=== PATIENT | male | born 1980 | race Caucasian/White ===

== ENCOUNTER 2020-02-20 04:20 | Emergency (ER) | payer SELFPAY ==
[2020-02-20 06:48] LABS: APPEARANCE,URINE SLIGHTLY-CLOUDY; BILIRUBIN,URINE NEGATIVE (NEGATIVE); GLUCOSE, URINE NEGATIVE (NEGATIVE); KETONES,URINE NEGATIVE (NEGATIVE); LEUKOCYTE ESTERASE,URINE NEGATIVE (NEGATIVE); NITRITE,URINE NEGATIVE (NEGATIVE); PROTEIN,URINE 30 mg/dL (NEGATIVE); URINE SPECIFIC GRAVITY 1.033
[2020-02-20 06:49] LABS: COLOR,URINE DARK YELLOW
[2020-02-20 06:53] LABS: HEMATOCRIT 44.3 % (37.9-51.0); HEMOGLOBIN 15.2 g/dL (13.5-17.0); MEAN CORPUSCULAR HEMOGLOBIN 29.1 pg (27.0-33.4); MEAN CORPUSCULAR HGB CONC 34.3 g/dL (32.0-36.0); MEAN CORPUSCULAR VOLUME 85 fl (80-97); PLATELET COUNT 223 10^3/uL (150-450); RED BLOOD COUNT 5.23 10^6/uL (4.35-5.55); RED CELL DISTRIBUTION WIDTH 13.9 % (11.5-14.0); WHITE BLOOD COUNT 22.6 10^3/uL (4.0-10.5)
[2020-02-20 07:07] LABS: ALBUMIN 4.7 g/dL (3.5-5.0); ALKALINE PHOSPHATASE 77 U/L (38-126); ANION GAP 12 (5-19); ASPARTATE AMINO TRANSFERASE 28 U/L (17-59); BILIRUBIN,DIRECT 0.2 mg/dL (0.0-0.4); BILIRUBIN,TOTAL 2.3 mg/dL (0.2-1.3); BLOOD UREA NITROGEN 14 mg/dL (7-20); CALCIUM 9.7 mg/dL (8.4-10.2); CARBON DIOXIDE 27 mmol/L (22-30); CHLORIDE 100 mmol/L (98-107); GLUCOSE 166 mg/dL (75-110); POTASSIUM 3.6 mmol/L (3.6-5.0); TOTAL PROTEIN 8.3 g/dL (6.3-8.2)
--- NOTE | 2020-02-20 07:26 | RADIOLOGY REPORT (SQ) ---
EXAM DESCRIPTION: XR ABDOMEN 1 VIEW (KUB) COMPLETED DATE/TME: 02/20/2020 06:35 CLINICAL HISTORY: 39 years Male, CONSTIPATION Comparison: None. NUMBER OF VIEWS/TECHNIQUE: 3 LIMITATIONS: None. FINDINGS: Intestinal gas pattern is within normal limits. No suspicious calcification. Lytic lesion with sclerotic margination at the lateral left femoral head may indicate subchondral degenerative cyst or chronic erosion. IMPRESSION: No acute findings.
[2020-02-20 07:48] LABS: ABSOLUTE LYMPHOCYTES# (MANUAL) 1.6 10^3/uL (0.5-4.7); ABSOLUTE MONOCYTES # (MANUAL) 2.7 10^3/uL (0.1-1.4); BASOPHILS % (MANUAL) 0 % (0-2); EOSINOPHILS % (MANUAL) 0 % (0-6); LYMPHOCYTES % (MANUAL) 6 % (13-45); MONOCYTES % (MANUAL) 12 % (3-13); SEGMENTED NEUTROPHILS % (MAN) 81 % (42-78); TOTAL CELLS COUNTED 100
[2020-02-20 07:49] LABS: PLATELET COMMENT ADEQUATE; RBC MORPHOLOGY COMMENT NORMO-CYTIC/CHROMIC
[2020-02-20] MEDS ORDERED: NORMAL SALINE 1000 ML 1,000 ML IV ONE (08:28)
--- NOTE | 2020-02-20 08:34 | ER Document Report ---
ED General - General Chief Complaint: Lower Abdominal Pain Stated Complaint: STOMACH PAIN Time Seen by Provider: 02/20/20 07:56 - HPI Notes: Chief complaint: Constipation and abdominal pain History of present illness: 39-year-old male with past history of polysubstance abuse taking Suboxone for several years and also with a history of untreated hepatitis C currently on no other prescription medications with reported history of penicillin allergy now presents with 5 days history of constipation asso ciated with progressively worsening right upper and lower quadrant abdominal pain. Denies fever chills. Has been nauseated and has vomited several times. His appetite has been diminished. He denies any past history abdominal surgery. He is a non-smoker. Consumes occasional alcohol socially. Currently unemployed. - Related Data Allergies/Adverse Reactions: Penicillins Allergy (Verified 02/20/20 04:36) Past Medical History - General Information source: Patient - Social History Smoking Status: Current Every Day Smoker Frequency of alcohol use: Occasional Drug Abuse: None Lives with: Alone Family History: Reviewed & Not Pertinent Endocrine Medical History: Denies: Hx Diabetes Mellitus Type 1, Hx Diabetes Mellitus Type 2 GI Medical History: Reports: Hx Hepatitis Surgical Hx: Negative Review of Systems - Review of Systems Notes: Constitutional: Negative for fever. HENT: Negative for sore throat. Eyes: Negative for visual changes. Cardiovascular: Negative for chest pain. Respiratory: Negative for shortness of breath. Gastrointestinal: As per HPI. Genitourinary: Negative for dysuria. Musculoskeletal: Negative for back pain. Skin: Negative for rash. Neurological: Negative for headaches, focal weakness or numbness. 10 point ROS negative except as marked above and in HPI. Physical Exam - Vital signs Vitals: Temp Pulse BP Pulse Ox 98.6 F 135 H 128/69 H 96 02/20/20 04:27 02/20/20 04:27 02/20/20 04:27 02/20/20 04:27 - Notes Notes: GENERAL: Well-developed well-nourished male approximately stated age appearing in no acute distress. SKIN: Good turgor no rashes. HEAD: Normocephalic atraumatic. EYES: PERRLA. EOMI. Conjunctivae and sclerae clear. EARS: CANALS AND TMS CLEAR. NOSE: CLEAR. MOUTH: Moist mucosa. Good dentition. No stridor or edema. No drooling. NECK: Supple. No masses or thyromegaly. No adenopathy. Carotids 2+ without bruits. No JVD. BACK: Symmetrical without tenderness. CHEST: Respirations unlabored. Breath sounds clear and symmetrical. HEART: Regular rhythm. No murmur gallop or rub. ABDOMEN: Abdomen appears mildly distended. There is mild tenderness right upper and right lower quadrant. Soft without masses, organomegaly or rebound. Bowel sounds normally active. No bruits. GENITALIA: Deferred. EXTREMITIES: No edema. No calf tenderness. Cap refill less than 1.5 seconds. Dorsalis pedis and posterior tibial pulses 3+ and symmetrical. NEUROLOGICAL: GCS 15. Alert and oriented x3. Normal gait. Fluent speech. Cranial nerves II through XII intact. Sensorimotor and cerebellar normal. Normal tone. PSYCHIATRIC: Appropriate affect. Course - Re-evaluation Re-evalutation: 02/20/20 12:44 Initial findings are suggestive of cholecystitis on CT and he has an elevated white count of 22,000. His bili is 2.3. His transaminases are normal. Findings have been discussed with the surgical list seasonal clerk, Dr. Darrin Jacinto who is indicated he would like to have an MRCP. This has been ordered. He will see the patient in the emergency department and I have initiated IV antibiotics. Patient remains n.p.o. 02/20/20 14:21 Patient was seen by a general surgeon who recommended cholecystectomy. Patient does not want to be admitted for this today and says he will come back to be seen in clinic and schedule this electively. human resource consultant discussed risks of delayed surgery but the patient is very much convinced that he does not want to stay today. Dr. Jacinto has recommended that we give the patient a dose of IV antibiotics and place him on oral antibiotics at home and he will see him back in clinic for follow-up. I have also discussed this with patient and his and this is their intent. Findings, clinical impression and plan of treatment have been discussed with patient/family. Understanding of current findings and recommendations has been acknowledged by them and there is agreement regarding disposition and follow-up. - Vital Signs Vital signs: Temp Pulse Resp BP Pulse Ox 98.3 F 78 18 133/78 H 97 02/20/20 08:49 02/20/20 08:49 02/20/20 08:49 02/20/20 08:49 02/20/20 08:49 - Laboratory Results Result Diagrams: 02/20/20 06:10 02/20/20 06:10 Laboratory Results Interpreted: 02/20/20 02/20/20 02/20/20 06:10 06:10 06:20 WBC 22.6 H Seg Neuts % (Manual) 81 H Lymphocytes % (Manual) 6 L Abs Neuts (Manual) 18.3 H Abs Monocytes (Manual) 2.7 H Glucose 166 H Total Bilirubin 2.3 H Total Protein 8.3 H Lipase 18.4 L Urine Protein 30 H Urine Urobilinogen 4.0 H Critical Laboratory Results Reviewed: Yes Attending or Supervising Physician who Reviewed Labs: TRACI OLIVARES - Radiology Results Radiology Results Interpreted: 02/20/20 12:43 KUB X-Ray 02/20/20 00:00 IMPRESSION: No acute findings. Abdomen/Pelvis CT 02/20/20 11:00 IMPRESSION: 1. Gallbladder disease as above. Concerning for acute cholecystitis. 2. Mild bowel changes may reflect enterocolitis. 3. Other findings as noted. Critical Radiology Results Reviewed: Yes Attending or Supervising Physician who Reviewed Radiology: TRACI OLIVARES Discharge - Discharge Clinical Impression: Cholecystitis Condition: Stable Disposition: HOME, SELF-CARE Additional Instructions: Gallbladder Disease Your evaluation shows evidence of gallbladder disease. The gallbladder is a pouch under the liver which stores bile. Stones, infection, or irritation of the gallbladder cause attacks of pain. Certain foods -- fats in particular -- may provoke attacks. The usual treatment for gallbladder disease is surgical removal of the gallbladder -- called a cholecystectomy. You will be referred to a physician qualified to advise you on the best treatment for your problem. Hospitalization is not necessary. Take clear liquids only until you are painfree. After that, you should stay on a low-fat diet, with frequent SMALL meals. Call the doctor or return at once if you develop severe pain, repeated vomiting, fever, or jaundice (a yellow color in the skin and whites of the eyes). Take prescribed medications as directed. Return here as needed for new or worsening symptoms: Pain that is worsening or unimproved Uncontrolled vomiting High fever or shaking chills Overall worsening Call surgery clinic to schedule follow-up with Dr. Jacinto this week. Prescriptions: Ciprofloxacin HCl [Cipro 500 mg Tablet] 500 mg PO BID #20 tablet Metronidazole [Flagyl 500 mg Tablet] 500 mg PO Q6H #40 tablet Referrals: DARRIN JACINTO MD [ACTIVE STAFF] - Follow up as needed
[2020-02-20 08:49] VITALS: BP 133/78
--- NOTE | 2020-02-20 11:36 | RADIOLOGY REPORT (SQ) ---
EXAM DESCRIPTION: CT ABD/PELVIS WITH IV ORAL IMAGES COMPLETED DATE/TIME: 02/20/2020 11:07 am REASON FOR STUDY: ruq pain COMPARISON: Radiographs from earlier. TECHNIQUE: CT scan of the abdomen and pelvis performed with intravenous and oral contrast using carmel shayne scanning technique with dynamic intravenous contrast injection. Images reviewed with lung, soft t issue, and bone windows. Reconstructed coronal and sagittal MPR images reviewed. Delayed images for e valuation of the urinary system also acquired. All images stored on PACS. All CT scanners at this facility use dose modulation, iterative reconstruction, and/or weight based d osing when appropriate to reduce radiation dose to as low as reasonably achievable (ALARA). [facility]: Dose Right [facility]: CareDose [facility]: Dose Right [facility]: Teradose 4D [facility]: Gratci CONTRAST TYPE AND DOSE: contrast/concentration: Isovue 350.00 mmol/ml; Total Contrast Delivered: 97. 0 ml; Total Saline Delivered: 64.1 ml RENAL FUNCTION: GFR > 60. RADIATION DOSE: CT Rad equipment meets quality standard of care and radiation dose reduction techniq ues were employed. CTDIvol: 7.8 - 7.8 mGy. DLP: 820 mGy-cm.. LIMITATIONS: None. FINDINGS: LOWER CHEST: No significant findings. No nodules or infiltrates. LIVER: Normal size. No masses. No dilated ducts. SPLEEN: Normal size. No focal lesions. PANCREAS: No masses. No significant calcifications. No adjacent inflammation or peripancreatic fluid collections. Pancreatic duct not dilated. GALLBLADDER: Abnormal. Distended with wall thickening and probable cholelithiasis. Oval nodule clos e to the gallbladder neck measures up to 1.6 cm. Unclear if this represents a node or stone. Region al pericholecystic inflammatory changes and edema. ADRENAL GLANDS: No significant masses or asymmetry. RIGHT KIDNEY AND URETER: No solid masses. No significant calcification. No hydronephrosis or hydroure ter. LEFT KIDNEY AND URETER: No solid masses. No significant calcification. No hydronephrosis or hydrouret er. AORTA AND VESSELS: No aneurysm. No dissection. Renal arteries, SMA, celiac without stenosis. RETROPERITONEUM: No retroperitoneal adenopathy, hemorrhage or masses. BOWEL AND PERITONEAL CAVITY: Mild fluid in the proximal half of the large bowel. No mechanical bowel obstruction. No free air. APPENDIX: Normal. PELVIS: Mild free fluid. Bladder unremarkable. ABDOMINAL WALL: No masses. No hernias. BONES: No fracture or worrisome bone lesion. Probable synovial herniation pit with surrounding scler osis in the left femoral head. OTHER: No other significant finding. IMPRESSION: 1. Gallbladder disease as above. Concerning for acute cholecystitis. 2. Mild bowel changes may reflect enterocolitis. 3. Other findings as noted. TECHNICAL DOCUMENTATION: JOB ID: [id number] Quality ID # [id number]: Final reports with documentation of one or more dose reduction techniques (e.g., Au tomated exposure control, adjustment of the mA and/or kV according to patient size, use of iterative reconstruction technique) 2010 [employer]- All Rights Reserved Reading location - IP/workstation name: [email or web address]
[2020-02-20] MEDS ORDERED: LORAZEPAM INJ 2 MG/1 ML VIAL IV ONE ×2 (12:49→12:50)
[2020-02-20] MEDS: METRONIDAZOLE 500 MG/NS RTU 500 MG/100 ML RTUPB IV ONE ×2 (12:55→13:19)
[2020-02-20] MEDS ORDERED: CIPROFLOXACIN 400 MG/D5W RTU 400 MG/200 ML RTUPB IV SCH (13:00)
--- NOTE | 2020-02-20 13:18 | PDOC CONSULTATION ---
Consultation Consult Date: 02/20/20 Attending physician:: TRACI OLIVARES Provider Consulted: CASEY JACINTO Consult reason:: cholecystitis History of Present Illness History of Present Illness: LES HUYNH is a 39 year old male 3 with past history of polysubstance abuse taking Suboxone for several years and also with a history of untreated hepatitis C currently on no other prescription medications with reported history of pe nicillin allergy now presents with 5 days history of constipation associated with progressively worsening right upper and lower quadrant abdominal pain. Denies fever chills. Has been nauseated and has vomited several times. His appetite has been diminished. He denies any past history abdominal surgery. He is a non-smoker. Consumes occasional alcohol socially. Currently unemployed. Past Medical History Endocrine Medical History: Denies: Diabetes Mellitus Type 1, Diabetes Mellitus Type 2 GI Medical History: Reports: Hepatitis Psychiatric Medical History: Reports: Alcohol Dependency, Substance Abuse Infectious Medical History: Reports: Hepatitis C Social History Lives with: Alone Smoking Status: Current Every Day Smoker Family History Family History: Reviewed & Not Pertinent Parental Family History Reviewed: No Children Family History Reviewed: NA Sibling(s) Family History Reviewed.: NA Medication/Allergy Allergies/Adverse Reactions: Penicillins Allergy (Verified 02/20/20 04:36) Review of Systems Eyes: ABSENT: as per HPI, visual disturbances, other Ears: ABSENT: as per HPI, hearing changes, other Nose, Mouth, and Throat: ABSENT: as per HPI, headache(s), mouth pain, sore throat, vertigo, other Breasts: ABSENT: as per HPI, other Cardiovascular: ABSENT: as per HPI, chest pain, dyspnea on exertion, edema, orthropnea, palpitations, other Respiratory: ABSENT: as per HPI, cough, dyspnea, hemoptysis, sputum, other Gastrointestinal: PRESENT: abdominal pain, bloating Genitourinary: ABSENT: as per HPI, difficulty urinating, dysuria, hematuria, nocturia, other Musculoskeletal: ABSENT: as per HPI, back pain, deformity, joint swelling, muscle weakness, other Integumentary: ABSENT: as per HPI, diaphoresis, erythema, lesions, pruritus, rash, wounds, other Neurological: ABSENT: as per HPI, abnormal gait, abnormal movements, abnormal speech, confusion, convulsions, dizziness, focal weakness, frequent falls, lack of coordination, memory loss, numbness, paresthesias, restless legs, syncope, tingling, tremor(s), vertigo, weakness, other Psychiatric: ABSENT: as per HPI, anxiety, depression, hallucinations, homidical ideation, suicidal ideation, other Endocrine: ABSENT: as per HPI, cold intolerance, flushing, heat intolerance, menstrual abnormalities, polydipsia, polyphagia, polyuria, other Hematologic/Lymphatic: ABSENT: as per HPI, easy bleeding, easy bruising, lym phadenopathy, other Allergic/Immunologic: ABSENT: as per HPI, seasonal rhinorrhea, other Physical Exam Vital Signs: Temp Pulse Resp BP Pulse Ox 98.3 F 78 18 133/78 H 97 02/20/20 08:49 02/20/20 08:49 02/20/20 08:49 02/20/20 08:49 02/20/20 08:49 Intake & Output 02/19/20 02/20/20 02/21/20 06:59 06:59 06:59 Intake Total 1000 Balance 1000 Weight 85.3 kg General appearance: PRESENT: no acute distress Head exam: PRESENT: normocephalic Eye exam: PRESENT: EOMI Ear exam: PRESENT: normal external ear exam Mouth exam: PRESENT: moist Teeth exam: PRESENT: poor dentation Neck exam: PRESENT: full ROM Respiratory exam: PRESENT: clear to auscultation ila Cardiovascular exam: PRESENT: RRR Pulses: PRESENT: normal radial pulses, normal femoral pulses Vascular exam: PRESENT: normal capillary refill Breast: PRESENT: Normal GI/Abdominal exam: PRESENT: Morales's sign - ruq tenderness, tenderness Rectal exam: PRESENT: deferred Extremities exam: PRESENT: full ROM Musculoskeletal exam: PRESENT: full ROM Neurological exam: PRESENT: alert, awake, oriented to person, oriented to place Psychiatric exam: PRESENT: appropriate affect Skin exam: PRESENT: dry Results Laboratory Results: 02/20/20 06:10 02/20/20 06:10 02/20/20 02/20/20 02/20/20 06:10 06:10 06:20 WBC 22.6 H RBC 5.23 Hgb 15.2 Hct 44.3 MCV 85 MCH 29.1 MCHC 34.3 RDW 13.9 Plt Count 223 Seg Neutrophils % Not Reportable Sodium 138.8 Potassium 3.6 Chloride 100 Carbon Dioxide 27 Anion Gap 12 BUN 14 Creatinine 0.88 Est GFR ( Amer) > 60 Glucose 166 H Calcium 9.7 Total Bilirubin 2.3 H AST 28 Alkaline Phosphatase 77 Total Protein 8.3 H Albumin 4.7 Lipase 18.4 L Urine Color DARK YELLOW Urine Appearance SLIGHTLY-CLOUDY Urine pH 5.0 Ur Specific [place] 1.033 Urine Protein 30 H Urine Glucose (UA) NEGATIVE Urine Ketones NEGATIVE Urine Blood NEGATIVE Urine Nitrite NEGATIVE Ur Leukocyte Esterase NEGATIVE Urine WBC (Auto) 2 Urine RBC (Auto) 1 Impressions: KUB X-Ray 02/20/20 00:00 IMPRESSION: No acute findings. Abdomen/Pelvis CT 02/20/20 11:00 IMPRESSION: 1. Gallbladder disease as above. Concerning for acute cholecystitis. 2. Mild bowel changes may reflect enterocolitis. 3. Other findings as noted. Assessment & Plan - Plan Summary Plan Summary: Patient with known hepatitis C. Elevated white blood count 22,000. CT scan shows a thickened gallbladder with peripheral edema around the gallbladder. Consistent with cholecystitis. Patient states that he normally runs a white blood count that is elevated because of his hepatitis C. However it is been untreated to this point. Clinical picture now is of acute cholecystitis. Recommended the patient that he undergo laparoscopic cholecystectomy versus open cholecystectomy I also informed him that his risk is slightly higher of bleeding because of his hepatitis C. However the patient does not want to be admitted to the hospital at this time and undergo surgery he wants to be discharged home on oral antibiotics and follow-up as an outpatient. He wants time to discuss it with his family and make other plans. I explained the patient that he does have an elevated white blood count and it is a sign of infection however he wants to defer at this point in start oral antibiotics as an outpatient. I explained to him that he can come back and see me in the office and I can schedule his surgery electively however I strongly urged him to undergo surgery at this time, he wants to defer.
[2020-02-20] MEDS ORDERED: OXYCODONE-ACETAMINOPHEN 5-325 MG TABLET PO ONE (13:53)
== END 2020-02-20 15:05 | disposition home or self-care (01) ==
LOC: ER 04:20
DX: K81.9 Cholecystitis, unspecified (principal); R10.30 Lower abdominal pain, unspecified; R11.2 Nausea with vomiting, unspecified; K59.00 Constipation, unspecified; F17.200 Nicotine dependence, unspecified, uncomplicated
CPT/HCPCS: 99285; 96361; 96365; 96368; 36415; 87040; 83690; 85025; 80053; 81001; 74018; 74177; J3490; J7030; J0744

== ENCOUNTER 2020-03-04 15:11 | Observation (INO) | payer SELFPAY ==
[2020-03-04] MEDS ORDERED: ONDANSETRON HCL INJ/PF 4 MG/2 ML SDV IV ONE ×2 (16:20→18:32)
[2020-03-04] MEDS ORDERED: KETOROLAC TROMETHAMINE INJ/PF 30 MG/1 ML SDV IV ONE (16:20)
--- NOTE | 2020-03-04 16:22 | ER Document Report ---
ED Medical Screen (RME) - General Chief Complaint: Abdominal Pain Stated Complaint: ABDOMINAL PAIN Time Seen by Provider: 03/04/20 16:14 Mode of Arrival: Ambulatory - [facility] Patient complains to provider of: Abdo pain Notes: 03/04/20 16:21 Patient here with complaints of right upper quadrant abdominal pain. The patient was seen here earlier in the month with abdominal pain. He was noted to have a white count of [address] that was consistent with acute cholecystitis. He was seen and evaluated by general surgery, but deferred to have surgery done at that time. He attempted to follow-up as an outpatient, but states that it was costing too much money was unable to afford being seen in having the surgery electively. States that his pain flared back up. He has nausea, but denies vomiting or diarrhea. No fever. Patient is on Suboxone and has a prior history of hepatitis C. Exam: Nontoxic, no distress. Tenderness palpation right upper quadrant with guarding. Lungs clear throughout. Heart sounds normal. An initial examination was made on the patient as part of the triage process, and it was determined a more comprehensive evaluation was necessary. Initial ord ers were placed and patient was transferred to another provider in the ED who assumed care and finished evaluation and plan. - Related Data Allergies/Adverse Reactions: Penicillins Allergy (Verified 03/04/20 16:12) Home Medications: subutex Past Medical History - Social History Chew tobacco use (# tins/day): No Frequency of alcohol use: None Drug Abuse: None Endocrine Medical History: Denies: Hx Diabetes Mellitus Type 1, Hx Diabetes Mellitus Type 2 GI Medical History: Reports: Hx Hepatitis Infectious Medical History: Reports: Hx Hepatitis Physical Exam - Vital signs Vitals: Temp Pulse Resp BP Pulse Ox 97.8 F 95 20 131/84 H 100 03/04/20 15:15 03/04/20 15:15 03/04/20 15:15 03/04/20 15:15 03/04/20 15:15 Course - Vital Signs Vital signs: Temp Pulse Resp BP Pulse Ox 97.8 F 95 20 131/84 H 100 03/04/20 15:15 03/04/20 15:15 03/04/20 15:15 03/04/20 15:15 03/04/20 15:15
[2020-03-04 18:13] LABS: APPEARANCE,URINE CLEAR; BILIRUBIN,URINE NEGATIVE (NEGATIVE); COLOR,URINE YELLOW; GLUCOSE, URINE NEGATIVE (NEGATIVE); KETONES,URINE NEGATIVE (NEGATIVE); LEUKOCYTE ESTERASE,URINE NEGATIVE (NEGATIVE); NITRITE,URINE NEGATIVE (NEGATIVE); PROTEIN,URINE NEGATIVE (NEGATIVE); URINE SPECIFIC GRAVITY 1.016; UROBILINOGEN,URINE NEGATIVE mg/dL (<2.0)
[2020-03-04 18:18] LABS: ABSOLUTE EOSINOPHILS # (AUTO) 0.2 10^3/uL (0.0-0.6); ABSOLUTE LYMPHOCYTES (AUTO) 2.1 10^3/uL (0.5-4.7); ABSOLUTE MONOCYTES (AUTO) 0.5 10^3/uL (0.1-1.4); ABSOLUTE NEUT (AUTO) 6.2 10^3/uL (1.7-8.2); BASOPHILS % (AUTO) 0.4 % (0-2); EOSINOPHILS % (AUTO) 2.1 % (0-6); HEMATOCRIT 47.9 % (37.9-51.0); HEMOGLOBIN 16.5 g/dL (13.5-17.0); LYMPHOCYTES % (AUTO) 23.4 % (13-45); MEAN CORPUSCULAR HEMOGLOBIN 29.3 pg (27.0-33.4); MEAN CORPUSCULAR HGB CONC 34.3 g/dL (32.0-36.0); MEAN CORPUSCULAR VOLUME 85 fl (80-97); MONOCYTES % (AUTO) 5.2 % (3-13); PLATELET COUNT 272 10^3/uL (150-450); RED BLOOD COUNT 5.62 10^6/uL (4.35-5.55); RED CELL DISTRIBUTION WIDTH 14.1 % (11.5-14.0); SEGMENTED NEUTROPHILS % (AUTO) 68.9 % (42-78); TOTAL CELLS COUNTED % (AUTO) 100 %
[2020-03-04 18:26] LABS: ALBUMIN 4.9 g/dL (3.5-5.0); ALKALINE PHOSPHATASE 100 U/L (38-126); ANION GAP 10 (5-19); ASPARTATE AMINO TRANSFERASE 73 U/L (17-59); BILIRUBIN,DIRECT 0.4 mg/dL (0.0-0.4); BILIRUBIN,TOTAL 0.5 mg/dL (0.2-1.3); BLOOD UREA NITROGEN 11 mg/dL (7-20); CALCIUM 10.5 mg/dL (8.4-10.2); CARBON DIOXIDE 30 mmol/L (22-30); CHLORIDE 101 mmol/L (98-107); GLUCOSE 89 mg/dL (75-110); POTASSIUM 4.3 mmol/L (3.6-5.0); TOTAL PROTEIN 8.2 g/dL (6.3-8.2)
[2020-03-04] MEDS ORDERED: MORPHINE SULFATE 10 MG/ML INJ IV ONE (18:32)
--- NOTE | 2020-03-04 18:36 | ER Document Report ---
ED General - General Chief Complaint: Abdominal Pain Stated Complaint: ABDOMINAL PAIN Time Seen by Provider: 03/04/20 16:14 Mode of Arrival: Ambulatory - HPI Notes: Patient is a 39-year-old male who presents emergency department for evaluation of right upper quadrant pain. He was seen here recently, elected not to have surgery secondary to acute cholecystitis. He was told he had multiple stones. He states he has been doing "his best" to follow dietary restrictions, but he has continued pain. He has lost weight. He has had some chills but no breanne fevers. Nausea but no vomiting. His pain is currently a 5 out of 5, eating makes it worse, nothing seems to make it better. Normal bowel movements. Normal urinary symptoms. - Related Data Allergies/Adverse Reactions: Penicillins Allergy (Verified 03/04/20 16:12) Home Medications: subutex Past Medical History - General Information source: Patient - Social History Smoking Status: Never Smoker Chew tobacco use (# tins/day): No Frequency of alcohol use: None Drug Abuse: None Lives with: Alone Family History: Reviewed & Not Pertinent Endocrine Medical History: Denies: Hx Diabetes Mellitus Type 1, Hx Diabetes Mellitus Type 2 GI Medical History: Reports: Hx Hepatitis - C Infectious Medical History: Reports: Hx Hepatitis Review of Systems - Review of Systems Constitutional: See HPI EENT: No symptoms reported Cardiovascular: No symptoms reported Respiratory: No symptoms reported Gastrointestinal: See HPI Genitourinary: No symptoms reported Musculoskeletal: No symptoms reported Skin: No symptoms reported Neurological/Psychological: No symptoms reported Physical Exam - Vital signs Vitals: Temp Pulse Resp BP Pulse Ox 97.8 F 95 20 131/84 H 100 03/04/20 15:15 03/04/20 15:15 03/04/20 15:15 03/04/20 15:15 03/04/20 15:15 - Notes Notes: Vital signs reviewed, please refer to chart. Head is normocephalic, atraumatic. Pupils equal round, reactive to light. Neck is supple without meningismus. Heart is regular rate and rhythm. Lungs are clear to auscultation bilaterally. Abdomen is soft, moderately tender in the right upper quadrant without rebound, positive guarding, normoactive bowel sounds throughout. Extremities without cyanosis, clubbing. Posterior calves are nontender. Peripheral pulses are equal. Skin is warm and dry. Patient is awake, alert, neurological exam is nonfocal. Course - Re-evaluation Re-evalutation: 03/04/20 18:35 Patient presents emergency department for evaluation. He has a known history of cholecystitis and cholelithiasis. He has had no fevers. Blood work is ordered. He does not have any markedly elevated liver and signs, his white count is normal. Awaiting ultrasound results. Patient is given pain and nausea medication. We will continue to monitor. 03/04/20 19:10 Ultrasound shows gallbladder sludge, wall thickening, findings consistent with a cute cholecystitis. I spoke with Dr. Her. He asks that a rapid Covid order replaced. He is in the OR at this time. 03/04/20 20:[address] Her regarding this patient. He will come down and it was coming down to see the patient. I am notified by nursing that the patient will be admitted to his service for cholecystectomy in the morning. - Vital Signs Vital signs: Temp Pulse Resp BP Pulse Ox 97.8 F 95 20 131/84 H 100 03/04/20 15:15 03/04/20 15:15 03/04/20 15:15 03/04/20 15:15 03/04/20 15:15 - Laboratory Results Result Diagrams: 03/04/20 17:30 03/04/20 17:30 Laboratory Results Interpreted: 03/04/20 03/04/20 17:30 17:30 RBC 5.62 H RDW 14.1 H Calcium 10.5 H AST 73 H ALT 66 H Critical Laboratory Results Reviewed: No Critical Results - Radiology Results Radiology Results Interpreted: 03/04/20 19:11 Abdomen Ultrasound 03/04/20 16:19 IMPRESSION: Findings suspicious for acute cholecystitis. Critical Radiology Results Reviewed: No Critical Results Discharge - Discharge Clinical Impression: Cholecystitis with cholelithiasis Condition: Stable Disposition: ADMITTED OBSERVATION Admitting Provider: Surgicalist Mary Her
[2020-03-04] MEDS ORDERED: NORMAL SALINE 1000 ML 1,000 ML IV ONE (18:47)
--- NOTE | 2020-03-04 18:52 | RADIOLOGY REPORT (SQ) ---
EXAM DESCRIPTION: U/S ABDOMEN LIMITED W/O DOP IMAGES COMPLETED DATE/TIME: 03/04/2020 3:38 pm REASON FOR STUDY: RUQ pain, prior cholecystitis, no surg COMPARISON: CT abdomen pelvis 02/20/2020 TECHNIQUE: Dynamic and static grayscale images acquired of the abdomen and recorded on PACS. Additio nal selected color Doppler and spectral images recorded. LIMITATIONS: Pancreas and portions of the abdominal aorta are obscured. FINDINGS: PANCREAS: Partially obscured due to overlying bowel. Visualized portions are unremarkable . LIVER: No masses. Echotexture normal. LIVER VASCULATURE: Normal directional flow of the main portal vein and hepatic veins. GALLBLADDER: Shadowing gallstones with gallbladder wall thickening measuring up to 5 to 6 mm. Probab le gallbladder sludge. ULTRASOUND-DETECTED WAGNER'S SIGN: Positive. INTRAHEPATIC DUCTS AND COMMON DUCT: CBD and intrahepatic ducts normal caliber. No filling defects. INFERIOR VENA CAVA: Not visualized AORTA: Visualized portions are nonaneurysmal. RIGHT KIDNEY: Normal size. Normal echogenicity. No solid or suspicious masses. No hydronephrosis. No calcifications. PERITONEAL AND RIGHT PLEURAL SPACE: No ascites or effusions. OTHER: No other significant findings. IMPRESSION: Findings suspicious for acute cholecystitis. TECHNICAL DOCUMENTATION: JOB ID: [id number] [employer]- All Rights Reserved Reading location - IP/workstation name: [email or web address]
--- NOTE | 2020-03-04 20:02 | PDOC H&P ---
History of Present Illness Patient complains of: Abdominal pain History of Present Illness: LES HUYNH is a 39 year old male With a history of polysubstance abuse, on Suboxone, previously [facility] February 19 diagnosed with acute cholecystitis with cholelithiasis, with leukocytosis, offered interval cholecystectomy but left AMA on p.o. antibiotics. Now presents back to the emergency department with persisting abdominal pain, weight loss, low-grade fever, anorexia. Ultrasonography shows gallstones in the gallbladder with thickened gallbladder wall. Patient is evaluated by surgery, recommended admission to the surgical service for definitive management. Patient states he is off drugs at this time. Past Medical History Past Medical History: COPD, smoking abuse, polysubstance abuse, hepatitis C Endocrine Medical History: Denies: Diabetes Mellitus Type 1, Diabetes Mellitus Type 2 GI Medical History: Reports: Hepatitis Past Surgical History Past Surgical History: Reports: None Social History Information Source: Patient Lives with: Alone Smoking Status: Current Every Day Smoker Electronic Cigarette use?: No Hx Recreational Drug Use: Yes Family History Family History: None, Reviewed & Not Pertinent Parental Family History Reviewed: No Children Family History Reviewed: No Sibling(s) Family History Reviewed.: No Medication/Allergy Home Medications: Ciprofloxacin HCl [Cipro 500 mg Tablet] 500 mg PO BID #20 tablet 02/20/20 Metronidazole [Flagyl 500 mg Tablet] 500 mg PO Q6H #40 tablet 02/20/20 Allergies/Adverse Reactions: Penicillins Allergy (Verified 03/04/20 16:12) Review of Systems Constitutional: PRESENT: weight loss Eyes: ABSENT: visual disturbances Ears: ABSENT: hearing changes Gastrointestinal: PRESENT: abdominal pain, bloating Genitourinary: ABSENT: dysuria, hematuria Musculoskeletal: ABSENT: joint swelling Integumentary: ABSENT: rash, wounds Neurological: ABSENT: abnormal gait, abnormal speech, confusion, dizziness, focal weakness, syncope Hematologic/Lymphatic: ABSENT: easy bleeding, easy bruising Physical Exam Vital Signs: Temp Pulse Resp BP Pulse Ox 97.8 F 95 20 131/84 H 100 03/04/20 15:15 03/04/20 15:15 03/04/20 15:15 03/04/20 15:15 03/04/20 15:15 Intake & Output 03/03/20 03/04/20 03/05/20 06:59 06:59 06:59 Weight 87.1 kg General appearance: PRESENT: no acute distress Head exam: PRESENT: normocephalic Eye exam: PRESENT: EOMI Mouth exam: PRESENT: dry mucosa Neck exam: PRESENT: full ROM Respiratory exam: PRESENT: rhonchi Cardiovascular exam: PRESENT: RRR Pulses: PRESENT: normal carotid pulses, normal radial pulses, normal femoral pulses GI/Abdominal exam: PRESENT: other - Tender right upper quadrant with guarding. No umbilical hernia. No groin hernia Rectal exam: PRESENT: deferred Extremities exam: PRESENT: full ROM Musculoskeletal exam: PRESENT: full ROM Neurological exam: PRESENT: oriented to time, oriented to situation Psychiatric exam: PRESENT: appropriate affect Focused psych exam: PRESENT: other - Anxious Skin exam: PRESENT: intact, other - Extensive tattoos Results Laboratory Results: 03/04/20 17:30 03/04/20 17:30 03/04/20 03/04/20 03/04/20 17:30 17:30 17:30 WBC 9.0 RBC 5.62 H Hgb 16.5 Hct 47.9 MCV 85 MCH 29.3 MCHC 34.3 RDW 14.1 H Plt Count 272 Seg Neutrophils % 68.9 Sodium 141.4 Potassium 4.3 Chloride 101 Carbon Dioxide 30 Anion Gap 10 BUN 11 Creatinine 0.80 Est GFR ( Amer) > 60 Glucose 89 Calcium 10.5 H Total Bilirubin 0.5 AST 73 H Alkaline Phosphatase 100 Total Protein 8.2 Albumin 4.9 Lipase 73.7 Urine Color YELLOW Urine Appearance CLEAR Urine pH 6.0 Ur Specific [place] 1.016 Urine Protein NEGATIVE Urine Glucose (UA) NEGATIVE Urine Ketones NEGATIVE Urine Blood NEGATIVE Urine Nitrite NEGATIVE Ur Leukocyte Esterase NEGATIVE Urine WBC (Auto) 0 Impressions: Abdomen Ultrasound 03/04/20 16:19 IMPRESSION: Findings suspicious for acute cholecystitis. Assessment & Plan - Diagnosis (1) Cholecystitis Is this a current diagnosis for this admission?: Yes Plan: Impression: Persisting, acute cholecystitis with cholelithiasis and 39-year-old white male, smoker, history of hepatitis C-untreated, history of polysubstance abuse Plan: 1. Admit, n.p.o., IV fluids, IV antibiotics, rapid Covid test 2. We will set patient up for interval laparoscopic, possible open cholecystectomy, 1 hour, [facility], possible drain, March 05 (2) Cholelithiasis Is this a current diagnosis for this admission?: Yes (3) Hepatitis-C Is this a current diagnosis for this admission?: Yes (4) Abuse of smoked substance Is this a current diagnosis for this admission?: Yes - Time Time Spent: 30 to 50 Minutes Critical Time spent with patient: 15-24 minutes Smoking Cessation Education: 3 to 10 minutes Medications reviewed and adjusted accordingly: Yes Anticipated Discharge Disposition: Home, Self Care Anticipated Discharge Timeframe: within 48 hours - Inpatient Certification Based on my medical assessment, after consideration of the patient's comorbidities, presenting symptoms, or acuity I expect that the services needed warrant INPATIENT care.: Yes I certify that my determination is in accordance with my understanding of Medicare's requirements for reasonable and necessary INPATIENT services [42 CFR 412.3e].: Yes Medical Necessity: Need for Pain Control, Need for IV Antibiotics, Need for Surgery
[2020-03-04] MEDS: RINGERS SOLUTION,LACTATED 1,000 ML IV PRN (22:34)
[2020-03-05] MEDS ORDERED: ACETAMINOPHEN INJ/PF 1000 MG/100 ML SDV IV SCH
[2020-03-05] MEDS: KETOROLAC TROMETHAMINE INJ/PF 30 MG/1 ML SDV IV PRN ×2 (00:08→08:07)
[2020-03-05] MEDS: CLINDAMYCIN 600 MG/D5W RTU 600 MG/50 ML RTUPB IV SCH ×3 (00:08→14:28)
[2020-03-05] MEDS: ACETAMINOPHEN 1,000 MG/100 ML RTUPB IV SCH ×3 (02:42→14:28)
[2020-03-05] MEDS: RINGERS SOLUTION,LACTATED 1,000 ML IV PRN (06:17)
[2020-03-05] MEDS ORDERED: LIDOCAINE 2% INJ-PF (20 MG/ML) 10 ML AMPUL ONE (08:44)
[2020-03-05] MEDS ORDERED: DEXAMETHASONE SOD PHOSPHATE INJ 4 MG/1 ML VIAL ONE (08:44)
[2020-03-05] MEDS ORDERED: FENTANYL CITRATE INJ/PF 100 MCG/2 ML AMPUL ONE (08:44)
[2020-03-05] MEDS ORDERED: ONDANSETRON HCL INJ/PF 4 MG/2 ML SDV ONE (08:44)
[2020-03-05] MEDS ORDERED: MIDAZOLAM 2 MG/2 ML INJ ONE (08:44)
[2020-03-05] MEDS ORDERED: HYDROMORPHONE HCL INJ/PF 2 MG/ML AMPULE ONE (08:45)
[2020-03-05] MEDS ORDERED: PROPOFOL INJ 200 MG/20 ML VIAL IV ONE (08:45)
[2020-03-05] MEDS ORDERED: BUPIVACAINE HCL 0.25 % INJ/PF (2.5 MG/1 ML) 30 ML VIAL ONE (09:16)
[2020-03-05] MEDS ORDERED: GLYCOPYRROLATE 1 MG/5 ML VIAL ONE (09:39)
[2020-03-05] MEDS ORDERED: KETOROLAC TROMETHAMINE 60 MG/2 ML SDV ONE (09:39)
[2020-03-05] MEDS ORDERED: NEOSTIGMINE METHYLSULFATE 10 MG/10 ML VIAL ONE (09:39)
[2020-03-05] MEDS ORDERED: CEFAZOLIN INJ 1 GM VIAL ONE (10:27)
[2020-03-05] MEDS ORDERED: MORPHINE SULFATE 10 MG/ML INJ IV PRN (10:55)
[2020-03-05] MEDS ORDERED: DIPHENHYDRAMINE HCL 50 MG/ML VIAL IV PRN (10:55)
[2020-03-05] MEDS ORDERED: PROMETHAZINE HCL INJ 25 MG/1 ML VIAL IV PRN ×2 (10:55)
[2020-03-05] MEDS ORDERED: FENTANYL CITRATE INJ/PF 100 MCG/2 ML AMPUL IV PRN ×3 (10:55)
[2020-03-05] MEDS ORDERED: OXYCODONE-ACETAMINOPHEN 5-325 MG TABLET PO PRN ×2 (10:55)
--- NOTE | 2020-03-05 11:54 | Operative Report ---
Operative Report DATE OF SURGERY: 03/05/20 PREOPERATIVE DIAGNOSIS: Acute and chronic cholecystitis with cholelithiasis POSTOPERATIVE DIAGNOSIS: Same OPERATION: Laparoscopic cholecystectomy SURGEON: HEATHER LIRA ANESTHESIA: GA TISSUE REMOVED OR ALTERED: 1 gallbladder with contents COMPLICATIONS: None ESTIMATED BLOOD LOSS: Minimal INTRAOPERATIVE FINDINGS: See below PROCEDURE: Patient was taken to the preop holding area to the main operating room where general anesthesia was induced. Arms were abducted, abdomen exposed, prepped and draped in sterile fashion. Surgical plan and surgical timeout were conducted. Markings were made on the skin for for port laparoscopy. All 3 sites were anesthetized with quarter percent Marcaine. A vertical incision was made over the umbilicus, Veress needle inserted the peritoneal cavity, pneumoperitoneum was established. Needle was removed, 5 mm port was inserted and a 5 mm flexible viewing scope was inserted. Under direct visualization 3 additional ports were placed one in the subxiphoid and 2 in the subcostal positions. There was no evidence of vascular or visceral injury. Findings were significant for an acute and chronically inflamed gallbladder with edema, and thickened gallbladder wall with pericholecystic fluid. Grasper was p laced on the fundus, and adhesions between the gallbladder and the gastroduodenal area were taken down under direct visualization. A second grasper was eventually placed on the infundibulum which was somewhat pedunculated. The peritoneal reflection on the medial and lateral sides of the triangle of Calot was opened up. The cystic artery and cystic duct ran parallel to each other. Multiple photos were taken now of these 2 structures once they were dissected out cleanly. The critical view was felt to be obtained from both the medial and lateral perspectives. Again photos taken. We clipped the cystic duct twice proximally once distally and divided with scissors. The the cystic duct was now clipped twice proximally, once distally then divided with scissors. The gallbladder was elevated off of the liver bed, and removed in its entirety using hook electrocautery dissection. There was a moderate amount of edema. The gallbladder was placed in Endobag and brought out of the patient through the supraumbilical port site after stretching the fascial opening. We returned to the peritoneal cavity check for bleeding there was none. Sponge and counts are correct. Clips on the cystic artery and cystic duct stumps respectively were in good position. We leveled the patient out irrigated, checked for bleeding and there was none. All ports removed under direct visualization, pneumoperitoneum evacuated, and wounds closed with 0 Vicryl, 3-0 Vicryl, benzoin and Steri-Strips. Patient tolerated the procedure well, extubated, and taken to recovery room in stable condition.
[2020-03-05] MEDS: MORPHINE SULFATE 10 MG/ML INJ ONE ×2 (12:20→12:25)
[2020-03-05 13:04] VITALS: BP 122/72
--- NOTE | 2020-03-05 14:19 | PDOC DISCHARGE SUMMARY ---
General - Admit/Disc Date/PCP Admission Date/Primary Care Provider: 03/04/20 20:10 Discharge Date: 03/05/20 - Discharge Diagnosis Final Diagnosis: Acute cholecystitis with cholelithiasis - Assessment Summary: Patient is a 39-year-old white male with history of smoking, polysubstance abuse, who was admitted to the hospital after being seen initially 2-1/2 weeks prior for abdominal pain cholelithiasis, cholecystitis. Patient declined admission to the hospital and was sent home on p.o. antibiotics. He was readmitted to [facility] by Dr. Her last night for acute cholecystitis cholelithiasis. Covid test negative. He was taken to the operating room on 03/05/2020 where he underwent laparoscopic cholecystectomy. He tolerated the operation well and was discharged home approximately 6 hours after the procedure. He was tolerating a diet and had adequate pain control. Patient will call [place] [facility] on March 06, for an appointment to neeru Her in approximately 2 weeks. No heavy lifting. Patient will take Motrin, Tylenol, or Toradol as prescribed. - Additional Information Resuscitation Status: Full Code Home Medications: Ciprofloxacin HCl [Cipro 500 mg Tablet] 500 mg PO BID #20 tablet 02/20/20 Metronidazole [Flagyl 500 mg Tablet] 500 mg PO Q6H #40 tablet 02/20/20 History of Present Illiness History of Present Illness: LES HUYNH is a 39 year old male With a history of polysubstance abuse, on Suboxone, previously seen at [facility] February 19 diagnosed with acute cholecystitis with cholelithiasis, with leukocytosis, offered interval cholecystectomy but left AMA on p.o. antibiotics. Now presents back to the emergency department with persisting abdominal pain, weight loss, low-grade fever, anorexia. Ultrasonography shows gallstones in the gallbladder with thickened gallbladder wall. Patient is evaluated by surgery, recommended admission to the surgical service for definitive management. Patient states he is off drugs at this time. Physical Exam Vital Signs: Temp Pulse Resp BP Pulse Ox 97.6 F 66 18 122/72 100 03/05/20 12:38 03/05/20 12:38 03/05/20 12:38 03/05/20 12:38 03/05/20 12:38 Intake & Output 03/04/20 03/05/2021 06:59 06:59 06:59 Intake Total 2049 1250 Output Total 10 Balance 2049 1240 Weight 85.1 kg Results Laboratory Results: WBC 9.0 10^3/uL (4.0-10.5) 03/04/20 17:30 RBC 5.62 10^6/uL (4.35-5.55) H 03/04/20 17:30 Hgb 16.5 g/dL (13.5-17.0) 03/04/20 17:30 Hct 47.9 % (37.9-51.0) 03/04/20 17:30 MCV 85 fl (80-97) 03/04/20 17:30 MCH 29.3 pg (27.0-33.4) 03/04/20 17:30 MCHC 34.3 g/dL (32.0-36.0) 03/04/20 17:30 RDW 14.1 % (11.5-14.0) H 03/04/20 17:30 Plt Count 272 10^3/uL (150-450) 03/04/20 17:30 Lymph % (Auto) 23.4 % (13-45) 03/04/20 17:30 [place] % (Auto) 5.2 % (3-13) 03/04/20 17:30 Eos % (Auto) 2.1 % (0-6) 03/04/20 17:30 Baso % (Auto) 0.4 % (0-2) 03/04/20 17:30 Absolute Neuts (auto) 6.2 10^3/uL (1.7-8.2) 03/04/20 17:30 Absolute Lymphs (auto) 2.1 10^3/uL (0.5-4.7) 03/04/20 17:30 Absolute Monos (auto) 0.5 10^3/uL (0.1-1.4) 03/04/20 17:30 Absolute Eos (auto) 0.2 10^3/uL (0.0-0.6) 03/04/20 17:30 Absolute Basos (auto) 0.0 10^3/uL (0.0-0.2) 03/04/20 17:30 Seg Neutrophils % 68.9 % (42-78) 03/04/20 17:30 Sodium 141.4 mmol/L (137-145) 03/04/20 17:30 Potassium 4.3 mmol/L (3.6-5.0) 03/04/20 17:30 Chloride 101 mmol/L (98-107) 03/04/20 17:30 Carbon Dioxide 30 mmol/L (22-30) 03/04/20 17:30 Anion Gap 10 (5-19) 03/04/20 17:30 BUN 11 mg/dL (7-20) 03/04/20 17:30 Creatinine 0.80 mg/dL (0.52-1.25) 03/04/20 17:30 Est GFR ( Amer) > 60 (>60) 03/04/20 17:30 Est GFR (MDRD) Non-Af > 60 (>60) 03/04/20 17:30 Glucose 89 mg/dL (75-110) 03/04/20 17:30 Calcium 10.5 mg/dL (8.4-10.2) H 03/04/20 17:30 Total Bilirubin 0.5 mg/dL (0.2-1.3) 03/04/20 17:30 Direct Bilirubin 0.4 mg/dL (0.0-0.4) 03/04/20 17:30 Neonat Total Bilirubin Not Reportable 03/04/20 17:30 Neonat Direct Bilirubin Not Reportable 03/04/20 17:30 Neonat Indirect Bili Not Reportable 03/04/20 17:30 AST 73 U/L (17-59) H 03/04/20 17:30 ALT 66 U/L (<50) H 03/04/20 17:30 Alkaline Phosphatase 100 U/L (38-126) 03/04/20 17:30 Total Protein 8.2 g/dL (6.3-8.2) 03/04/20 17:30 Albumin 4.9 g/dL (3.5-5.0) 03/04/20 17:30 Lipase 73.7 U/L (23-300) 03/04/20 17:30 Urine Color YELLOW 03/04/20 17:30 Urine Appearance CLEAR 03/04/20 17:30 Urine pH 6.0 (5.0-9.0) 03/04/20 17:30 Ur Specific [place] 1.016 03/04/20 17:30 Urine Protein NEGATIVE mg/dL (NEGATIVE) 03/04/20 17:30 Urine Glucose (UA) NEGATIVE mg/dL (NEGATIVE) 03/04/20 17:30 Urine Ketones NEGATIVE mg/dL (NEGATIVE) 03/04/20 17:30 Urine Blood NEGATIVE (NEGATIVE) 03/04/20 17:30 Urine Nitrite NEGATIVE (NEGATIVE) 03/04/20 17:30 Urine Bilirubin NEGATIVE (NEGATIVE) 03/04/20 17:30 Urine Urobilinogen NEGATIVE mg/dL (<2.0) 03/04/20 17:30 Ur Leukocyte Esterase NEGATIVE (NEGATIVE) 03/04/20 17:30 Urine WBC (Auto) 0 /HPF 03/04/20 17:30 Squamous Epi Cells Auto <1 /HPF 03/04/20 17:30 Urine Mucus (Auto) RARE /LPF 03/04/20 17:30 Urine Ascorbic Acid NEGATIVE (NEGATIVE) 03/04/20 17:30 Influenza A (RT-PCR) NEGATIVE (NEGATIVE) 03/04/20 19:49 Influenza B (RT-PCR) NEGATIVE (NEGATIVE) 03/04/20 19:49 RSV (RT-PCR) NEGATIVE (NEGATIVE) 03/04/20 19:49 SARS-CoV-2 Rap RNA(RT-PCR) NEGATIVE (NEGATIVE) 03/04/20 19:49 Impressions: Abdomen Ultrasound 03/04/20 16:19 IMPRESSION: Findings suspicious for acute cholecystitis.
== END 2020-03-05 14:45 | disposition home or self-care (01) ==
LOC: ER 15:11 → EH 20:10 → 4N 22:38
PROVIDERS: ATTEND Surgery
DX: K80.12 Calculus of gallbladder with acute and chronic cholecystitis without obstruction (principal); Z01.812 Encounter for preprocedural laboratory examination; Z20.822 Contact with and (suspected) exposure to COVID-19; F19.11 Other psychoactive substance abuse, in remission; B19.20 Unspecified viral hepatitis C without hepatic coma; Z79.899 Other long term (current) drug therapy; Z60.2 Problems related to living alone; F17.210 Nicotine dependence, cigarettes, uncomplicated
CPT/HCPCS: 96376; 99285; 96361; 96374; 96375; 36415; 83690; 85025; 0241U; 80053; 81001; 88304 ×2; 76705; 00790; 47562; 99406; G0378 ×2; J2250; J0690; J1100; J1885 ×3; J3010; J2270 ×2; J2710; J1170; J2405 ×2; J7030; J7120 ×2; J2704; J3490 ×2; C9803; 790